=== PATIENT | female | born 1990 | race Hispanic/Latino ===

== ENCOUNTER → 2024-04-19 | Outpatient (CLI) | payer OTHER, SELFPAY ==
[2024-04-19 14:26] LABS: Absolute Lymphocyte Count 2.01 X10^3/uL (0.83-4.51); Absolute Neutrophil Count 8.3 X10^3/uL (2.0-7.7); Basophil# 0.07 X10^3/uL; Basophil% 0.6 % (0-1); Eosinophil# 0.07 X10^3/uL; Eosinophils% 0.6 % (0-5); Hematocrit 39.5 % (37-47); Hemoglobin 13.7 g/dL (12.0-15.0); Lymphocyte # 2.01 X10^3/ul (0.83-4.51); Lymphocyte % 17.6 % (19-41); Mean Corp Hgb Conc 34.7 g/dL (32-36); Mean Corpuscular Hgb 30.5 pg (27.0-32.0); Mean Platelet Vol. 9.3 fl (6.2-12.0); Monocyte# 0.97 X10^3/uL; Monocyte% 8.5 % (0-10); NRBC Flagged by Analyzer 0 % (0-5); Neutrophil # 8.26 X10^3/uL (2.7-7.7); Neutrophil % 72.1 % (47-70); Platelet Count 363 K/mm3 (150-450); RBC Distribution Width CV 12.2 % (11.6-14.6); RBC Distribution Width SD 39.1 fl (35.1-43.9); Red Blood Count 4.49 M/mm3 (4.2-5.4); White Blood Count 11.5 K/mm3 (4.4-11.0)
[2024-04-19 15:26] LABS: Hemoglobin A1c 5.8 % (3.8-5.6)
[2024-04-21 07:06] LABS: Thyroid Peroxidase AB < 9 IU/mL (0-34)
[2024-04-22 18:08] LABS: Anti-Cardiolipin Ab, IgG, Qn < 9 GPL U/mL (0-14); Anti-Cardiolipin Ab, IgM, Qn < 9 MPL U/mL (0-12); Beta-2-Glycoprotein I IgA 58 (0-25); Beta-2-Glycoprotein I IgG 81 (0-20); Beta-2-Glycoprotein I IgM <9 (0-32); Dilute Prothrombin Time (dPT) 32.9 sec (0.0-47.6); Dilute Russell Viper Venom 31.9 sec (0.0-47.0); Interpretation Comment: (.); PTT-LA 27.5 sec (0.0-43.5); Thrombin Time 16.9 sec (0.0-23.0); dPT Confirm Ratio 1.13 Ratio (0.00-1.34)
== END | disposition home or self-care (01) ==
PROVIDERS: Nurse Practitioner Family; Referring Provider Obstetrics & Gynecology; Visit Provider Obstetrics & Gynecology
DX: O26.899 Other specified pregnancy related conditions, unspecified trimester (principal); Z67.91 Unspecified blood type, Rh negative; N96 Recurrent pregnancy loss; E04.9 Nontoxic goiter, unspecified
CPT/HCPCS: 36415; 83036; 84443; 85025; 86146; 86147; 86376; 86850; 86900; 86901

== ENCOUNTER 2024-04-22 11:19 | Day surgery (SDC) | payer OTHER, SELFPAY ==
[2024-04-22] VITALS (10 sets, daily range): BP systolic 101–129; BP diastolic 72–90; PULSE 63–90; RESP 16–18; TEMP 36.2–37.1; O2SAT 97–100; BMI 30.3
--- NOTE | 2024-04-22 08:26 | PCM.HP.BLA ---
History and Physical [facility] [address], [address] [place] [address] OFFICE VISIT Date of Service: 04/19/24 MR#: [id number] Acct: [id number] Name: USMAN BELTRAN Rep #: [id number] : 1990 Provider: Dr. Martha Tovar MD Age/Sex: 33/F Location: [facility] Status: Signed Intake Vital Signs 02/25/2415:26 04/19/2409:41 04/19/2412:22 Height 5 ft 7 in 5 ft 7 in 5 ft 7 in Weight: 176 lb 176 lb BMI 27.6 27.6 BP 151/89 H 143/80 H Blood Pressure Location Lt brachial Position Sitting Respiration 14 Pulse 68 Pulse Source Monitor Temp 97.2 F L Pulse Oximetry (%) 98 Oxygen Delivery Method room air Intake Visit Reasons: Driss PCC 67 weeks no heartbeat per SM Clinical Esthetician Required: No Is patient in pain?: No Allergies latex Allergy (Intermediate, Verified 04/19/24 15:08) Itchingacetaminophen Allergy (Verified 04/19/24 15:08) Rash Medications ?Medication ?Instructions ?Recorded ?Confirmed ?Type vitamin #56-iron 35 mg 1 cap PO DAILY #90 caps 08/07/23 04/19/24 Rx and 5 mg-folic acid 1 mg-dha capsule blood-glucose sensor (FreeStyle #6 ea 02/26/24 04/19/24 Rx Gwen 3 Sensor device) blood sugar diagnostic (OneTouch #150 ea 04/11/24 04/19/24 Rx Verio test strips) blood-glucose meter (OneTouch #1 ea 04/11/24 04/19/24 Rx Verio Flex Meter) lancets 33 gauge (OneTouch Delica #150 ea 04/11/24 04/19/24 Rx Plus Lancet) insulin lispro 100 unit/mL 60 unit continuous subcutaneous 04/19/24 04/19/24 History subcutaneous solution (Humalog infusion USEASDIRECTD U-100 Insulin) Is last menstrual period known: Yes Last Menstrual Period: 02/16/24 Post menopausal: No : No PFSH Medical History Seasonal allergies Iron deficiency Diabetes mellitus Surgical History H/O dilation and curettage Family History (Updated 04/19/24 @ 12:18 by Marizol Singer) Aunt Cancer Maternal- Uterine Breast cancer, Onset Age: 60Father Diabetes Thyroid disorderGrandfather Diabetes MaternalGrandmother Diabetes Paternal OsteoporosisAunt Uterine cancer, Onset Age: 40Mother Thyroid disorderOther Anemia Anxiety CVA (cerebral vascular accident) Depression H/O ulcer disease High cholesterol Hypertension Social History (Updated 04/19/24 @ 12:19 by Marizol Singer) adopted: No household members: spouse current occupational status: employed 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 current occupational exposures/hazards: No pets and animals: Yes (Avoid litter box) pets and animals: cat(s) history of recent travel: Yes ([place]- 08/02) out of state: Yes out of country: Yes sexually active: Yes Smoking Status: Never smoker alcohol intake: current alcohol intake frequency: a few times a week details: not drinking while substance use type: does not use diet: vegetarian well-balanced diet: daily or most days caffeine: No eating out: 1-3 times/week during the past year weight has: increased > 10 lbs what type of physical activity do you participate in: none shamika/bahai: Zoroastrian seatbelt use: always do you feel safe at home: Yes additional social history: [place] [facility] 67 weeks no heartbeat per Details: USMAN PARRA is a 33 year old who presents for early loss she has diabetes well controlled BS 140 today, had spotting the last few days no regular cramping, seen in [place] at center with heartbeat seen 2 weeks ago and yesterday no heartbeat seen. she is supposed to be nine weeks but is only measuring 6. US shows 25mm sac and 4 mm CRL with no FHT or color doppler flow seen. Female Reproductive History Last Menstrual Period: 02/16/24 History 2 Elective abortions Hx Para 0 Spontaneous abortions 1 Hx # Term Pregnancies Ectopic pregnancies Hx # Pregnancies Multiple births # of living children 0 Past Pregnancies Del. Date Name GA/Weeks Outcome Route Bth Weight Infant Gen Labor Lgth Anesthesia Del Locatn Provider FOB Unknown 11/2022 Miscarriage 6 spontaneous Delivery Date: Last Updated by: Sarah Rodriguez D&Johnathon ROS Const Constitutional: Reports as per HPI; Denies fever(s) ENT ENT: Reports system reviewed and no additional complaints, except as documented Cardio Card: Reports system reviewed and no additional complaints, except as documented Resp Resp: Reports system reviewed and no additional complaints, except as documented GI GI: Reports as per HPI : Reports as per HPI Musc Musc: Reports system reviewed and no additional complaints, except as documented Skin Skin/Breast: Reports system reviewed and no additional complaints, except as documented Neuro Neuro: Reports system reviewed and no additional complaints, except as documented Endo Endo: Reports system reviewed and no additional complaints, except as documented Exam Const General: healthy appearing, comfortable and no acute distress HENMT Head: normal to inspection and normocephalic Neck Neck: no lymphadenopathy noted Thyroid: thyroid normal Chest Chest palpation & inspection: normal inspection of the chest Resp Effort & Inspection: normal respiratory effort Cardio Rate: regular rate Rhythm: regular rhythm GI Inspection: normal to inspection Palpation: soft and nontender External Female Exam: normal external appearance Speculum Exam - Vagina: normal appearance of the vagina and vaginal bleeding Bimanual Exam- Vagina & Uterus: uterine shape normal and non-tender OB/External & Speculum: vaginal bleeding Speculum Exam: vaginal bleeding Skin General: no rashes or lesions noted Neuro General: no focal motor deficits Extrem General: normal to inspection and no pedal edema Psych Appearance: grossly normal Coding Level of Care Code Off vis,new,level 4 Diagnoses Hypertension affecting O16.9 Rh negative state in antepartum period O26.899; Z67.91 Recurrent loss N96 Type 1 diabetes mellitus without complications E10.9 Depression, unspecified depression type F32.A Depression Type: unspecified Missed O02.1 Assessment and Plan Assessment and Plan (1) Hypertension affecting : Status: Acute (2) Rh negative state in antepartum period: Status: Acute Comment: Rhogam @ 28 wks & PRN bleeding (3) Recurrent loss: Status: Acute (4) Type 1 diabetes mellitus without complications: Status: Chronic (5) Depression: Status: Acute Qualifiers: Depression Type: unspecified Qualified Code(s): F32.A - Depression, unspecified (6) Missed : Status: Acute Comment: measuring 6 weeks, had heartbeat 2 weeks ago and none now. 4 mm CRL. recommend d and c with ANORA Orders: Orders CBC W/Diff, Automated Today O26.899 - Other specified related conditions, unspecified trimester, Z. - Unspecified blood type, Rh negative Type & Screen Today O26.899 - Other specified related conditions, unspecified trimester, Z - Unspecified blood type, Rh negative Rho(D) Immune Globulin RhoGam Today [id number] - Other specified related conditions, unspecified trimester, Z - Unspecified blood type, Rh negative Beta-2 Glycoprot IgG, A, M Today N96 - Recurrent loss Lupus Anticoagulant Comp Today N96 - Recurrent loss Anticardiolipin IgG, IgM Today N96 - Recurrent loss Thyroid Stim Hormone (TSH) Today N96 - Recurrent loss Hemoglobin A1c Today N96 - Recurrent loss Rhogam Injection Today O26.899 - Other specified related conditions, unspecified trimester, Z - Unspecified blood type, Rh negative Medications: New RhoGAM Ultra-Filtered PLUS (rho(D) immune globulin) 1,500 units IM ONCE 1 ea 0RF NS O26.89 - Other specified related conditions, unspecified trimester, Z. - Unspecified blood type, Rh negative Plan After discussing the patient's diagnosis and treatment plan options, patient wishes to proceed with surgical management. I have discussed with the patient the risks, benefits, and alternatives of the procedure which include but are not limited to risks of anesthesia, bleeding, infection, possible damage to bowel, bladder, or surrounding vasculature which could lead to additional surgery to evaluate any complications. Patient agrees to procedure and wishes to proceed. ACOG/uptodate references given for additional information regarding procedure. UPDATE- I have seen the patient and performed any clinically relevant updates to the history and physical exam. Martha Tovar MD
[2024-04-22] MEDS: Lubricating Jelly 60 GM Tube 30 GM (12:27)
--- NOTE | 2024-04-22 12:34 | PCM.PRE.AN2 ---
ASA Classification* ASA Classification ASA Classification: 2 Assessment & Plan Anesthesia* Anesthesia Assessment Anesthesia Assessment: Discussed sedation and/or anesthesia options, risks, benefits, and alternatives with patient/parents/legal guardian/POA. Questions invited. The patient/parents/legal guardian/POA seems to understand and agrees to proceed with anesthesia plan. Reviewed the physical assessment, medical history, allergy history and patient home medications list prior to surgery/procedure/anesthetic and documented any changes. Performed airway and anesthesia risk assessments. Anesthesia Type Anesthesia Type: MAC History Source History Obtained from:: Patient and Chart Anesthesia Focused Assessment* Temperature: 98.7 F Pulse Rate: 90 Blood Pressure: 124/72 Respiratory Rate: 18 Pulse Ox: 100 Oxygen Delivery Method: Room Air Airway Assessment Mouth opens: >3 cm Mallampati Score: II Teeth Condition: Intact Neck Range of motion (ROM): Full ROM Focused Labs Anesthesia Preop lab: CBC WBC 11.5 K/mm3 (4.4-11.0) H 04/19/24 13:10 RBC 4.49 M/mm3 (4.2-5.4) 04/19/24 13:10 Hgb 13.7 g/dL (12.0-15.0) 04/19/24 13:10 Hct 39.5 % (37-47) 04/19/24 13:10 Plt Count 363 K/mm3 (150-450) 04/19/24 13:10 CHEMISTRY TSH 2.530 uIU/mL (0.358-3.740) 04/19/24 13:10 COAG PT Pending 04/22/24 12:05 Pre-Assessment Diagnosis/Proposed Procedure Planned Operative Procedure(s): SUCTION D&C Anesthesia History Anesthesia History - emergency communications dispatcher: Anesthesia History - emergency communications dispatcher Hx Hospitalization No 04/19/24 15:10 Any Problems With Anesthesia Yes: TACHYCARDIA PANIC 04/19/24 15:10 ATTACK WITH ORAL SURGERY Cholinesterase deficiency No 04/19/24 15:10 You/Your Family Experience No 04/19/24 15:10 fever (hyperthermia) with Relationship Recent Exposure to Contagious No 04/22/24 12:23 Disease Does patient have nerve No 04/19/24 15:10 stimulator Patient instructed to have device shut off --Does patient have Pacemaker No 04/22/24 12:23 or ICD? When Was Last Pacemaker Check QUESTION #4 FULL TEXT: You/Your Family Experience fever (hyperthermia) with Anesthesia Last Oral Intake Last Oral intake: Last Oral Intake NPO since 00:00 04/22/24 12:23 Meds taken in AM with sips of Yes 04/22/24 12:23 water? Meds patient instructed to take am of surgery PONV PONV - emergency communications dispatcher: PONV - emergency communications dispatcher Female Yes 04/19/24 15:10 HX of Motion Sickness Yes 04/19/24 15:10 HX of N/V After Surgery No 04/19/24 15:10 Non-Smoker Yes 04/19/24 15:10 Duration of Surgery greater No 04/19/24 15:10 than 60 minutes Number of Risk Factors 3 04/19/24 15:10 PONV Score Moderate Risk 04/19/24 15:10 Height & Weight Height & Weight: Anesthesia: Height & Weight Height 5 ft 4 in 04/22/24 12:23 Weight: 80.195 kg 04/22/24 12:23 Body Mass Index (BMI) 30.3 04/22/24 12:23 Respiratory Assessment Respiratory Assessment - emergency communications dispatcher: Respiratory Tract Infection Hx - emergency communications dispatcher Hx Respiratory Tract Infection No 04/19/24 15:10 STOP Sleep Apnea STOP Sleep Apnea - emergency communications dispatcher: STOP Sleep Apnea - emergency communications dispatcher Hx Hypertension No 04/19/24 15:10 Hx Sleep Apnea No 04/19/24 15:10 CPAP BIPAP Do you snore loudly (louder No 04/19/24 15:10 than talking or can be heard Do you often feel tired/ No 04/19/24 15:10 fatigued/ sleepy during daytime? Has anyone observed you stop No 04/19/24 15:10 breathing during sleep? STOP Results Negative 04/19/24 15:10 QUESTION #5 FULL TEXT : Do you snore loudly (louder than talking or can be heard through closed doors)? Tobacco Use History Tobacco Use History - emergency communications dispatcher: Tobacco Use History - emergency communications dispatcher Tobacco Use Smoking Status Never smoker 04/19/24 15:10 Hx Tobacco Use No 04/19/24 15:10 Years Smoking Packs Smoked per Day Smoking Cessation Date was within the last 15 years Hx Smoking Cessation Date Hx Smoking Cessation Counseling Hematologic Medial History Hematologic Hx - emergency communications dispatcher: Hematologic Medical Hx - pipe processor Hx of Blood Transfusion Yes 04/19/24 15:10 Hx of Transfusion in last 3 No 04/19/24 15:10 Months Date of Last Transfusion (if within last 3 months) Ever experience any problems No 04/19/24 15:10 with transfusion(s)? Specify any problems Hx of Preganancy in last 3 Yes 04/19/24 15:10 Months Nurse Filling Out Transfusion DSCHRIBER 04/19/24 15:10 & Questions: Date: 04/19/24 04/19/24 15:10 Time: 15:13 04/19/24 15:10 Patient unable to answer at this time (ie. confused, unrespo /Reproduction History /Reproductive History - emergency communications dispatcher: /Reproductive Hx- emergency communications dispatcher Hx Now Yes 04/19/24 15:10 Gestational Age (in weeks): EDC: Hx Hx Para Hx Section SAB No 04/19/24 15:10 PFSH Medical History Depression Anxiety Insulin dependent diabetes mellitus Low iron Back pain Migraine headache Blackout Seizures Dietary restriction Heartburn Non-smoker Seasonal allergies Iron deficiency Home Medications ?Medication ?Instructions ?Recorded ?Last Taken ?Type vitamin #56-iron 35 mg 1 cap PO DAILY #90 caps 08/07/23 04/21/24 Rx and 5 mg-folic acid 1 mg-dha capsule blood-glucose sensor (FreeStyle #6 ea 02/26/24 Unknown Rx Gwen 3 Sensor device) blood sugar diagnostic (OneTouch #150 ea 04/11/24 Unknown Rx Verio test strips) blood-glucose meter (OneTouch #1 ea 04/11/24 Unknown Rx Verio Flex Meter) lancets 33 gauge (OneTouch Delica #150 ea 04/11/24 Unknown Rx Plus Lancet) RhoGAM Ultra-Filtered PLUS 1,500 1,500 unit IM ONCE #1 ea 04/19/24 04/19/24 Clinic unit (300 mcg) intramuscular syringe (rho(D) immune globulin) insulin lispro 100 unit/mL 60 unit continuous subcutaneous 04/19/24 04/22/24 History subcutaneous solution (Humalog infusion USEASDIRECTD U-100 Insulin) Allergy/AdvReac Type Severity Reaction Status Date / Time latex Allergy Intermediate Itching Verified 04/22/24 12:22 acetaminophen Allergy Rash Verified 04/22/24 12:22 Family History Aunt Cancer Maternal- Uterine Breast cancer, Onset Age: 60 Father Diabetes Thyroid disorder Grandfather Diabetes Maternal Grandmother Diabetes Paternal Osteoporosis Aunt Uterine cancer, Onset Age: 40 Mother Thyroid disorder Other Anemia Anxiety CVA (cerebral vascular accident) Depression H/O ulcer disease High cholesterol Hypertension Surgical History Hx of oral surgery H/O dilation and curettage Social History adopted: No household members: spouse current occupational status: employed 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 current occupational exposures/hazards: No pets and animals: Yes (Avoid litter box) pets and animals: cat(s) history of recent travel: Yes ([place]- 08/02) out of state: Yes out of country: Yes sexually active: Yes Smoking Status: Never smoker alcohol intake: current alcohol intake frequency: a few times a week details: not drinking while substance use type: does not use diet: vegetarian well-balanced diet: daily or most days caffeine: No eating out: 1-3 times/week during the past year weight has: increased > 10 lbs what type of physical activity do you participate in: none shamika/orthodox: Holiness seatbelt use: always do you feel safe at home: Yes additional social history: [facility] Review of Systems (Anesthesia) ROS Narrative System reviewed and no additional complaints, except as documented.
[2024-04-22 12:36] LABS: Bedside Glucose 98 mg/dL (74-106)
[2024-04-22 12:41] LABS: Prothrombin Time (Protime)PT. 13.5 SECONDS (11.7-14.9)
[2024-04-22 12:42] LABS: Partial Thromboplast Time 23.4 Seconds (24.1-36.2)
[2024-04-22] MEDS: Doxycycline 100 MG CAPSULE PO (12:46)
--- NOTE | 2024-04-22 13:00 | POC_PTH ---
PATIENT: USMAN BELTRAN [place]: [facility] [place] U#:[id number] AGE/SX: 33/F ROOM: RE04/22/[address]: Dr. Martha Tovar MD : 1990 BED: DIS: 04/22/2024 SPEC #: [id number] RECD: 04/22/24 13:51 STATUS: CAMILLE REOvi #: [id number] DENIA: 04/22/24 13:[address]: Martha Tovar DEPT: SURGICAL PATHOLOGY RECD BY: Naresh Akhtar ENTERED: 04/22/24 14:13 SP TYPE: PROD CONC OTHR DR: Dr. Carmita Blanc MD Tissues: Product of conception, NOS Procedures: Surgery Specimen Level IV HEADER OPERATION: Dilation and curettage, suction, Anora PRE-OP DIAGNOSIS: Recurrent loss, missed TISSUE SUBMITTED: Products of conception, Anora testing MICROSCOPIC DIAGNOSIS Endometrium, curettage: Chorionic villi, decidualized stroma and trophoblastic cells (products of conception). AM: 04/23/2024 MICROSCOPIC DESCRIPTION Slides are reviewed. GROSS DESCRIPTION Received in fixative is one container labeled with the patient's name and designated Products of conception. The specimen consists of multiple irregular fragments of pink-mcleod soft tissue measuring in aggregate 9.0 x 8.0 x 0.7cm. parts are not grossly recognized. Psychiatric Nurse Practitioner portions are submitted for Anora testing. Psychiatric Nurse Practitioner portions are submitted for permanent sections in three cassettes. DELIA. 04/22/2024 TC:5 CPT:90695
--- NOTE | 2024-04-22 13:02 | PCM.OPRPT ---
Problems Associated Problem List Diagnoses (1) Missed : Report of Operation Date of Procedure: 04/22/24 Pre-Operative Diagnosis: see problem list Post-Operative Diagnosis: same Surgery/Procedure Performed:: Suction dilation and curettage Description of Surgical Findings:: no FHT present, Nonviable 7-8 weeks Surgeon: Martha Tovar auto clutch rebuilder: None Type of Anesthesia: Local MAC Special Medications: none Specimen's removed: POC Drains: none Estimated Blood Loss (mL): 100 Fluids Replaced: crystalloid Description of Procedure: Patient was taken to the operating room and placed under MAC local anesthesia. She was prepped and draped in the normal sterile fashion the dorsal lithotomy position. Bladder was drained of clear urine and anterior lip of the cervix was grasped and the uterus sounded to 10cm. Cervix was progressively dilated to allow passage of a 9mm suction curette. Progressive passes were made removing the retained products of conception without complication. Sharp curettage confirmed complete removal of the retained products. All instruments were removed from the vagina and excellent hemostasis was noted and the patient was taken to recovery in stable condition. Grafts/Implants Used: none Procedure Start Time: 13:29 Procedure Stop Time: 13:37 Complications none Admit VTE Documentation VTE Present on Admission: No VTE Mechan Device Prophylaxis: SCD's Procedures Urinary/Genital 52xxx-59xxx: [id number] Surg Trtmt missed Ab, 1TM
[2024-04-22] MEDS: Lidocaine 1% (20 ml mdv) 20 ML Vial (13:33)
--- NOTE | 2024-04-22 13:40 | DCINST_ITS ---
Discharge Instructions Diet Discharge Diet: No restrictions Activity Discharge Activity: Return to Normal Activity, May Shower and May Take a Tub Bath (after 1 week) May resume sexual activity in: 1-2 weeks Weight Bearing Status: Weight bearing as tolerated Lifting Restrictions: none Dressing / Incision Call your doctor if you observe: Fever of 101 or Higher, Using more than 1 pad per hour, Shortness of breath and Uncontrolled pain Follow Up Care Please Follow Up With: Martha Tovar MD When: Call [phone] to schedule appointment. Test Results: Test results from this visit will be discussed in further detail at your follow- up appointment, if applicable. Discharge Plan Admission Attending Provider: Martha Tovar Primary Care Provider: Carmita Blanc Instructions Print Language: Tuvaluan Discharge Orders/Prescriptions Prescriptions: No Action insulin lispro [Humalog U-100 Insulin] 100 unit/mL solution 60 unit continuous subcutaneous infusion USEASDIRECTD PNV #[id number] acid-dha 35 mg iron-5 mg iron-1 mg capsule 1 cap PO DAILY Qty: 90 1RF (DME) FreeStyle Gwen 3 Sensor Device See Rx Instructions .Route Qty: 6 1RF Rx Instructions: 1 sensor q 14 days rho(D) immune globulin [RhoGAM Ultra-Filtered PLUS] 1,500 unit (300 mcg) syringe 1,500 unit IM ONCE Qty: 1 0RF (DME) blood-glucose meter [OneTouch Verio Flex meter] Misc See Rx Instructions .Route Qty: 1 0RF Rx Instructions: As directed (DME) OneTouch Verio test strips Strip See Rx Instructions .Route Qty: 150 6RF Rx Instructions: 4 times daily (DME) lancets [OneTouch Delica Plus Lancet] 33 gauge misc See Rx Instructions .Route Qty: 150 6RF Rx Instructions: As directed Referrals / Follow Up: Carmita Blanc MD [Primary Care Provider] - Disposition Disposition (needs filled in before D/C Order can be placed): Home, Self Care
--- NOTE | 2024-04-22 13:45 | PCM.POST.ANE ---
Anesthesia: Postop Eval I Current Vital Signs Temperature: 98.5 F Pulse Rate: 88 Blood Pressure: 119/87 Respiratory Rate: 16 Pulse Ox: 100 Oxygen Delivery Method: Room Air Assessment Airway patent: Yes Spontaneous unlabored respirations: Yes Mental status: Awake and Calm nausea: No Vomiting: No Anesthesia Complication: No Fluid Hydration Crystalloid volume administer (ml): 10 Total IV fluid infused: 10 Progress Note Anesthesia document: Postop Eval 1 completed: Yes
[2024-04-22] MEDS: oxyCODONE 5 MG Tablet PO (14:52)
--- NOTE | 2024-04-22 16:55 | POSTOPAN2_ITS ---
Anesthesia Postop Eval I Sum Postop Eval Completion status Anesthesia document: Postop Eval 1 completed: Yes Anesthesia Postop Eval I Summary Anesthesia Postop Eval I Summary: Anesthesia Postop Eval I: Assessment Summary Airway patent Yes 04/22/24 13:46 PAPER [email or web address] Spontaneous unlabored Yes 04/22/24 13:46 PAPER [email or web address] respirations Mental status Awake,Calm 04/22/24 13:46 PAPER [email or web address] nausea No 04/22/24 13:46 PAPER [email or web address] Vomiting No 04/22/24 13:46 PAPER [email or web address] Anesthesia Postop Eval I: Fluid Summary Crystalloid volume administer 10 04/22/24 13:46 PAPER [email or web address] (ml) Colloids volume administered ( ml) Blood Product volume administered (ml) Total IV fluid infused 10 04/22/24 13:46 PAPER [email or web address].ROSLYN Anesthesia Postop Eval I: Summary Notes Anesthesia Complication No 04/22/24 13:46 PAPER [email or web address].ROSLYN Anesthesia Complication Comment: Post-operative progress note Anesthesia: Postop Eval II Evaluation Mental status: Awake and Calm Pain Level: 1 nausea: No Vomiting: No Complications Anesthesia Complication: No
--- NOTE | 2024-04-22 16:55 | PCM.POSTANE2 ---
Anesthesia Postop Eval I Sum Postop Eval Completion status Anesthesia document: Postop Eval 1 completed: Yes Anesthesia Postop Eval I Summary Anesthesia Postop Eval I Summary: Anesthesia Postop Eval I: Assessment Summary Airway patent Yes 04/22/24 13:46 KENO TERMINAL OPERATOR.[email or web address] Spontaneous unlabored Yes 04/22/24 13:46 KENO TERMINAL OPERATOR.ROSLYN respirations Mental status Awake,Calm 04/22/24 13:46 KENO TERMINAL OPERATOR.PIOOBY nausea No 04/22/24 13:46 KENO TERMINAL OPERATOR.PIOOBY Vomiting No 04/22/24 13:46 KENO TERMINAL OPERATOR.[email or web address] Anesthesia Postop Eval I: Fluid Summary Crystalloid volume administer 10 04/22/24 13:46 KENO TERMINAL OPERATOR.[email or web address] (ml) Colloids volume administered ( ml) Blood Product volume administered (ml) Total IV fluid infused 10 04/22/24 13:46 KENO TERMINAL OPERATOR.ROSLYN Anesthesia Postop Eval I: Summary Notes Anesthesia Complication No 04/22/24 13:46 KENO TERMINAL OPERATOR.ROSLYN Anesthesia Complication Comment: Post-operative progress note Anesthesia: Postop Eval II Evaluation Mental status: Awake and Calm Pain Level: 1 nausea: No Vomiting: No Complications Anesthesia Complication: No
[2024-04-23 07:49] LABS: Pathology Specimen OB SEE PATHOLOGY REPORT
== END 2024-04-22 15:28 | disposition home or self-care (01) ==
LOC: SDC 11:22 → AC 11:23
PROVIDERS: PCP Family Medicine; Referring Provider Obstetrics & Gynecology; Visit Provider Obstetrics & Gynecology
PROC: (CPT 59820; principal; 2024-04-22 12:45)
DX: O02.1 Missed abortion (principal); E10.9 Type 1 diabetes mellitus without complications; Z79.4 Long term (current) use of insulin; F32.A Depression, unspecified; I10 Essential (primary) hypertension; O26.21 Pregnancy care for patient with recurrent pregnancy loss, first trimester; Z79.899 Other long term (current) drug therapy
CPT/HCPCS: 59820; 01965; 82962; 85610; 85730; 86850; 86900; 86901; 88305; A4216; J2405; J3490